=== PATIENT | female | born 1995 | race Caucasian/White ===

== ENCOUNTER 2016-12-13 09:25 | Emergency (ER) | payer BC ==
[2016-12-13 09:39] VITALS: BP 134/65
[2016-12-13] MEDS ORDERED: Sodium Chloride 0.9% 10 ML Syringe FLUSH PRN (10:00)
[2016-12-13] MEDS ORDERED: Sodium Chloride 0.9% 500 ML IV ONE (10:00)
--- NOTE | 2016-12-13 12:21 | EDM.PDOC ---
ED HPI GENERAL MEDICAL PROBLEM - General Chief Complaint: Chest Pain Stated Complaint: CHEST PRESSURE, RAPID HEART RATE Time Seen by Provider: 12/13/16 09:50 Source of Information: Reports: Patient, RN Notes Reviewed - History of Present Illness INITIAL COMMENTS - FREE TEXT/NARRATIVE: 21-year-old female comes in with complaint of chest discomfort, palpitations. Ongoing on intermittently for about the past week to 10 days. Her symptoms have been more bothersome yesterday and today. States that time her heart rate is gone up into the 110-120 range. The even at rest and then even "faster with exertion". The chest get tight and she also is aware of palpitations. Had nonspecific dizziness. She states she feels more fatigued than usual. She has not been coughing. No fever or chills. No abdominal pain nausea or vomiting. she does not take any regular medications. She does not have history of any known medical problems. Chest Pain Score (Numeric/FACES): 6 - Related Data Allergies Allergy/AdvReac Type Severity Reaction Status Date / Time tramadol Allergy Dizziness Verified 12/13/16 09:40 Home Meds: Home Meds . 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 Denies: Fever, Chills HEENT: Denies: Sinus Problem, Throat Pain Respiratory: Reports: Shortness of Breath (mild gone) Cardiovascular: Reports: Chest Pain (anterior chest tightness and achiness), Lightheadedness, Palpitations Endocrine: Reports: Fatigue GI/Abdominal: Denies: Abdominal Pain, Nausea, Vomiting Musculoskeletal: Reports: Other (generalized achiness) Skin: Reports: No Symptoms Neurological: Reports: Dizziness, Weakness (generalized). Denies: Numbness, Tingling, Trouble Speaking ED EXAM, GENERAL - Physical Exam Exam: See Below General Appearance: Alert, Anxious (mild) Eye Exam: Bilateral Eye: PERRL Throat/Mouth: Normal Inspection, Normal Oropharynx Head: Atraumatic. No: Facial Swelling Neck: Supple, Full Range of Motion Respiratory/Chest: No Respiratory Distress, Lungs Clear, Normal Breath Sounds, Chest Non-Tender Cardiovascular: Regular Rate, Rhythm GI/Abdominal: Soft, Non-Tender Back Exam: No: CVA Tenderness (L), CVA Tenderness (R) Extremities: Normal Inspection. No: Pedal Edema, Leg Pain Neurological: Alert, Oriented, No Motor/Sensory Deficits Skin Exam: Warm, Dry, Normal Color Course - Vital Signs Last Recorded V/S: Last Vital Signs Temp 97.3 F 12/13/16 09:33 Pulse 109 H 12/13/16 09:33 Resp 16 12/13/16 09:33 BP 134/65 12/13/16 09:33 Pulse Ox 100 12/13/16 09:33 - Orders/Labs/Meds Orders: Active Orders 24 hr Category Date Time Status EKG 12 Lead [EKG Documentation Completion] [RC] STAT Care 12/13/16 10:00 Active Holter Monitor 48 Hours [RC] .PRN Care 12/13/16 12:25 Active Peripheral IV Care [RC] . DIRECTED Care 12/13/16 10:00 Active Peripheral IV Insertion Adult [OM.PC] Stat Oth 12/13/16 10:00 Ordered Labs: Laboratory Tests 12/13/16 12/13/16 12/13/16 Range/Units 09:52 09:52 09:52 WBC 6.46 (3.98-10.04) K/mm3 RBC 4.54 (3.98-5.22) M/mm3 Hgb 12.9 (11.2-15.7) gm/L Hct 38.3 (34.1-44.9) % MCV 84.4 (79.4-94.8) fl MCH 28.4 (25.6-32.2) pg MCHC 33.7 (32.2-35.5) g/dl RDW Std Deviation 40.2 (36.4-46.3) fL Plt Count 279 (182-369) K/mm3 MPV 10.0 (9.4-12.3) fl Neut % (Auto) 62.2 (34.0-71.1) % Lymph % (Auto) 23.5 (19.3-51.7) % [place] % (Auto) 9.0 (4.7-12.5) % Eos % (Auto) 4.5 (0.7-5.8) Baso % (Auto) 0.6 (0.1-1.2) % Neut # (Auto) 4.02 (1.56-6.13) K/mm3 Lymph # (Auto) 1.52 (1.18-3.74) K/mm3 [place] # (Auto) 0.58 H (0.24-0.36) K/mm3 Eos # (Auto) 0.29 (0.04-0.36) K/mm3 Baso # (Auto) 0.04 (0.01-0.08) K/mm3 ESR (0-20) mm/hr Sodium 140 (136-145) mEq/L Potassium 4.1 (3.5-5.1) mEq/L Chloride 105 (98-107) mEq/L Carbon Dioxide 25 (21-32) mEq/L Anion Gap 14.1 (5-15) BUN 10 (7-18) mg/dL Creatinine 0.7 (0.55-1.02) mg/dL Est Cr Clr Drug Dosing 118.34 mL/min Estimated GFR (MDRD) > 60 (>60) mL/min BUN/Creatinine Ratio 14.3 (14-18) Glucose 95 (74-106) mg/dL Calcium 8.9 (8.5-10.1) mg/dL Total Bilirubin 0.8 (0.2-1.0) mg/dL AST 17 (15-37) U/L ALT 17 (14-59) U/L Alkaline Phosphatase 60 (46-116) U/L Total Protein 7.6 (6.4-8.2) g/dl Albumin 3.8 (3.4-5.0) g/dl Globulin 3.8 gm/dL Albumin/Globulin Ratio 1.0 (1-2) TSH 3rd Generation 1.583 (0.358-3.74) uIU/mL HCG, Qual Negative (NEGATIVE) 12/13/16 Range/Units 09:52 WBC (3.98-10.04) K/mm3 RBC (3.98-5.22) M/mm3 Hgb (11.2-15.7) gm/L Hct (34.1-44.9) % MCV (79.4-94.8) fl MCH (25.6-32.2) pg MCHC (32.2-35.5) g/dl RDW Std Deviation (36.4-46.3) fL Plt Count (182-369) K/mm3 MPV (9.4-12.3) fl Neut % (Auto) (34.0-71.1) % Lymph % (Auto) (19.3-51.7) % [place] % (Auto) (4.7-12.5) % Eos % (Auto) (0.7-5.8) Baso % (Auto) (0.1-1.2) % Neut # (Auto) (1.56-6.13) K/mm3 Lymph # (Auto) (1.18-3.74) K/mm3 [place] # (Auto) (0.24-0.36) K/mm3 Eos # (Auto) (0.04-0.36) K/mm3 Baso # (Auto) (0.01-0.08) K/mm3 ESR 11 (0-20) mm/hr Sodium (136-145) mEq/L Potassium (3.5-5.1) mEq/L Chloride (98-107) mEq/L Carbon Dioxide (21-32) mEq/L Anion Gap (5-15) BUN (7-18) mg/dL Creatinine (0.55-1.02) mg/dL Est Cr Clr Drug Dosing mL/min Estimated GFR (MDRD) (>60) mL/min BUN/Creatinine Ratio (14-18) Glucose (74-106) mg/dL Calcium (8.5-10.1) mg/dL Total Bilirubin (0.2-1.0) mg/dL AST (15-37) U/L ALT (14-59) U/L Alkaline Phosphatase (46-116) U/L Total Protein (6.4-8.2) g/dl Albumin (3.4-5.0) g/dl Globulin gm/dL Albumin/Globulin Ratio (1-2) TSH 3rd Generation (0.358-3.74) uIU/mL HCG, Qual (NEGATIVE) Meds: Medications Discontinued Medications Generic Name Dose Route Start Last Admin Trade Name Freq PRN Reason Stop Dose Admin Sodium Chloride 500 mls @ 999 mls/hr 12/13/16 10:00 12/13/16 10:14 Normal Saline IV 12/13/16 10:30 999 mls/hr .BOLUS ONE Administration Sodium Chloride 10 ml 12/13/16 10:00 12/13/16 10:15 Saline Flush FLUSH 10 ml ASDIRECTED PRN Administration Keep Vein Open - Re-Assessments/Exams Free Text/Narrative Re-Assessment/Exam: 12/13/16 14:52 labs have all come back relatively normal. EKG was normal. Due to severity of symptoms have arranged for her to go home with 48 hour Holter monitor. Discharge instructions as documented Departure - Departure Time of Disposition: 12:10 Disposition: Home, Self-Care 01 Clinical Impression: Rapid palpitations Instructions: Sinus Tachycardia, Palpitations, [id number] Referrals: PCP,None [Primary Care Provider] - Forms: ED Department Discharge Additional Instructions: 48 hour Holter monitor, continue to drink plenty of water to maintain hydration , follow-up at [facility] Tuesday as planned, your white blood count, hemoglobin, chemistries, thyroid function and sedimentation rate were all normal when checked while here at the ED this morning. Return to ED if symptoms worsening in any way. - My Orders Last 24 Hours: My Active Orders 12/13/16 10:00 EKG 12 Lead [EKG Documentation Completion] [RC] STAT Peripheral IV Care [RC] . DIRECTED Peripheral IV Insertion Adult [OM.PC] Stat 12/13/16 12:25 Holter Monitor 48 Hours [RC] .PRN - Assessment/Plan Last 24 Hours: My Active Orders 12/13/16 10:00 EKG 12 Lead [EKG Documentation Completion] [RC] STAT Peripheral IV Care [RC] . DIRECTED Peripheral IV Insertion Adult [OM.PC] Stat 12/13/16 12:25 Holter Monitor 48 Hours [RC] .PRN
== END 2016-12-13 12:40 | disposition home or self-care (01) ==
LOC: JD.ED 09:25
DX: R00.2 Palpitations (principal); Z88.5 Allergy status to narcotic agent
CPT/HCPCS: 36415; 80053; 84443; 84703; 85025; 85652; 93005; 93225; 93226; 96360; 96361; 99285; J7040; J7050

== ENCOUNTER 2016-12-20 19:18 | Emergency (ER) | payer BC ==
[2016-12-20 19:29] VITALS: BP 124/86
--- NOTE | 2016-12-20 20:40 | EDM.PDOC ---
ED HPI GENERAL MEDICAL PROBLEM - General Chief Complaint: Chest Pain Stated Complaint: chest pain Time Seen by Provider: 12/20/16 19:43 Source of Information: Reports: Patient History Limitations: Reports: No Limitations - History of Present Illness INITIAL COMMENTS - FREE TEXT/NARRATIVE: Patient is a 21-year-old female presents ED complaining of fast heart rate, palpitations, intermittent chest pain with shortness of breath. States she's been evaluated by a provider here in the ED this past week for similar complaints. 48 hour Holter monitor was ordered and the patient went to her primary care provider today to obtain results but none were present. Patient states she's continue to have palpitations with fast heart rate. Today from 11: 00 till 1:00 her heart rate was 138 bpm. At that time she was just sitting around watching HER-2 young children. States last week upon discharge from the ED heart rate was in the 160s per her apple watch. When symptoms come on she becomes short of breath has intermittent chest pain and feels very fatigued afterwards. Symptoms come on sporadically with really no known precipitating factor. She denies no recent increase in stress or excessive caffeine use. She does admit to having poor sleep secondary to caring for her kids. Currently with admission to the ED denies any chest pain, shortness of breath, dizziness, nausea/vomiting, abdominal pain, dysuria, swelling to her lower extremities, or history of DVT/PE. She has no additional past medical history. 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 Denies: Fever, Chills HEENT: Reports: No Symptoms Respiratory: Reports: Shortness of Breath (With onset of tachycardia) Cardiovascular: Reports: Chest Pain (With onset of tachycardia), Dyspnea on Exertion, Palpitations. Denies: Lightheadedness, Syncope GI/Abdominal: Denies: Abdominal Pain, Constipation, Diarrhea, Nausea, Vomiting : Denies: Dysuria, Frequency, Urgency, Urinary Retention Musculoskeletal: Reports: No Symptoms Neurological: Reports: Dizziness (With onset of tachycardia). Denies: Headache , Numbness, Tingling ED EXAM, GENERAL - Physical Exam Exam: See Below Exam Limited By: No Limitations General Appearance: Alert, WD/WN, No Apparent Distress Ears: Hearing Grossly Normal Nose: Normal Inspection Throat/Mouth: Normal Voice, No Airway Compromise Neck: Normal Inspection, Supple Respiratory/Chest: No Respiratory Distress, Lungs Clear, Normal Breath Sounds, No Accessory Muscle Use, Chest Non-Tender Cardiovascular: Normal Peripheral Pulses, Regular Rate, Rhythm, No Murmur Peripheral Pulses: 2+: Radial (L) GI/Abdominal: Normal Bowel Sounds, Soft, Non-Tender, No Organomegaly, No Distention Extremities: Normal Inspection, Non-Tender, No Pedal Edema, Normal Capillary Refill Neurological: Alert, Oriented, CN II-XII Intact, Normal Cognition, No Motor/ Sensory Deficits Psychiatric: Normal Affect, Normal Mood Skin Exam: Warm, Dry, Intact, Normal Color Course - Vital Signs Last Recorded V/S: Last Vital Signs Temp 98.3 F 12/20/16 19:27 Pulse 82 12/20/16 19:27 Resp 20 12/20/16 19:27 BP 124/86 12/20/16 19:27 Pulse Ox 100 12/20/16 19:27 - Orders/Labs/Meds Labs: Laboratory Tests 12/20/16 12/20/16 12/20/16 Range/Units 20:05 20:05 20:05 WBC (3.98-10.04) K/mm3 RBC (3.98-5.22) M/mm3 Hgb (11.2-15.7) gm/L Hct (34.1-44.9) % MCV (79.4-94.8) fl MCH (25.6-32.2) pg MCHC (32.2-35.5) g/dl RDW Std Deviation (36.4-46.3) fL Plt Count (182-369) K/mm3 MPV (9.4-12.3) fl Neut % (Auto) (34.0-71.1) % Lymph % (Auto) (19.3-51.7) % [place] % (Auto) (4.7-12.5) % Eos % (Auto) (0.7-5.8) Baso % (Auto) (0.1-1.2) % Neut # (Auto) (1.56-6.13) K/mm3 Lymph # (Auto) (1.18-3.74) K/mm3 [place] # (Auto) (0.24-0.36) K/mm3 Eos # (Auto) (0.04-0.36) K/mm3 Baso # (Auto) (0.01-0.08) K/mm3 Manual Slide Review Sodium (136-145) mEq/L Potassium (3.5-5.1) mEq/L Chloride (98-107) mEq/L Carbon Dioxide (21-32) mEq/L Anion Gap (5-15) BUN (7-18) mg/dL Creatinine (0.55-1.02) mg/dL Est Cr Clr Drug Dosing mL/min Estimated GFR (MDRD) (>60) mL/min BUN/Creatinine Ratio (14-18) Glucose (74-106) mg/dL Calcium (8.5-10.1) mg/dL Magnesium (1.8-2.4) mg/dl Total Bilirubin (0.2-1.0) mg/dL AST (15-37) U/L ALT (14-59) U/L Alkaline Phosphatase (46-116) U/L Total Protein (6.4-8.2) g/dl Albumin (3.4-5.0) g/dl Globulin gm/dL Albumin/Globulin Ratio (1-2) TSH 3rd Generation (0.358-3.74) uIU/mL Urine Color Yellow (Yellow) Urine Appearance Clear (Clear) Urine pH 6.5 (5.0-8.0) Ur Specific [place] > or = 1.030 (1.005-1.030) Urine Protein Negative (Negative) Urine Glucose (UA) Negative (Negative) Urine Ketones Negative (Negative) Urine Occult Blood Negative (Negative) Urine Nitrite Negative (Negative) Urine Bilirubin Negative (Negative) Urine Urobilinogen 0.2 (0.2-1.0) Ur Leukocyte Esterase Negative (Negative) Urine RBC 0-5 (0-5) /hpf Urine WBC 0-5 (0-5) /hpf Ur Epithelial Cells 5-10 H (0-5) /hpf Urine Bacteria Few (FEW) /hpf Urine Mucus Few (FEW) /hpf Urine HCG, Qual Negative (NEGATIVE) Urine Opiates Screen Negative (NEGATIVE) Ur Buprenorphine Scrn Negative (NEGATIVE) Ur Oxycodone Screen Negative (NEGATIVE) Urine Methadone Screen Negative (NEGATIVE) Ur Propoxyphene Screen Negative (NEGATIVE) Ur Barbiturates Screen Negative (NEGATIVE) Ur Tricyclics Screen Negative (NEGATIVE) Ur Phencyclidine Scrn Negative (NEGATIVE) Ur Amphetamine Screen Negative (NEGATIVE) U Methamphetamines Scrn Negative (NEGATIVE) U Benzodiazepines Scrn Negative (NEGATIVE) U Cocaine Metab Screen Negative (NEGATIVE) U Marijuana (THC) Screen Negative (NEGATIVE) 12/20/16 12/20/16 Range/Units 20:15 20:15 WBC 7.13 (3.98-10.04) K/mm3 RBC 4.63 (3.98-5.22) M/mm3 Hgb 13.0 (11.2-15.7) gm/L Hct 39.2 (34.1-44.9) % MCV 84.7 (79.4-94.8) fl MCH 28.1 (25.6-32.2) pg MCHC 33.2 (32.2-35.5) g/dl RDW Std Deviation 40.3 (36.4-46.3) fL Plt Count 332 (182-369) K/mm3 MPV 9.6 (9.4-12.3) fl Neut % (Auto) 53.5 (34.0-71.1) % Lymph % (Auto) 33.2 (19.3-51.7) % [place] % (Auto) 8.3 (4.7-12.5) % Eos % (Auto) 3.5 (0.7-5.8) Baso % (Auto) 1.5 H (0.1-1.2) % Neut # (Auto) 3.81 (1.56-6.13) K/mm3 Lymph # (Auto) 2.37 (1.18-3.74) K/mm3 [place] # (Auto) 0.59 H (0.24-0.36) K/mm3 Eos # (Auto) 0.25 (0.04-0.36) K/mm3 Baso # (Auto) 0.11 H (0.01-0.08) K/mm3 Manual Slide Review Normal smear Sodium 142 (136-145) mEq/L Potassium 3.5 (3.5-5.1) mEq/L Chloride 106 (98-107) mEq/L Carbon Dioxide 28 (21-32) mEq/L Anion Gap 11.5 (5-15) BUN 9 (7-18) mg/dL Creatinine 0.7 (0.55-1.02) mg/dL Est Cr Clr Drug Dosing 122.89 mL/min Estimated GFR (MDRD) > 60 (>60) mL/min BUN/Creatinine Ratio 12.9 L (14-18) Glucose 107 H (74-106) mg/dL Calcium 9.1 (8.5-10.1) mg/dL Magnesium 2.1 (1.8-2.4) mg/dl Total Bilirubin 0.8 (0.2-1.0) mg/dL AST 17 (15-37) U/L ALT 16 (14-59) U/L Alkaline Phosphatase 63 (46-116) U/L Total Protein 7.9 (6.4-8.2) g/dl Albumin 4.0 (3.4-5.0) g/dl Globulin 3.9 gm/dL Albumin/Globulin Ratio 1.0 (1-2) TSH 3rd Generation 1.824 (0.358-3.74) uIU/mL Urine Color (Yellow) Urine Appearance (Clear) Urine pH (5.0-8.0) Ur Specific [place] (1.005-1.030) Urine Protein (Negative) Urine Glucose (UA) (Negative) Urine Ketones (Negative) Urine Occult Blood (Negative) Urine Nitrite (Negative) Urine Bilirubin (Negative) Urine Urobilinogen (0.2-1.0) Ur Leukocyte Esterase (Negative) Urine RBC (0-5) /hpf Urine WBC (0-5) /hpf Ur Epithelial Cells (0-5) /hpf Urine Bacteria (FEW) /hpf Urine Mucus (FEW) /hpf Urine HCG, Qual (NEGATIVE) Urine Opiates Screen (NEGATIVE) Ur Buprenorphine Scrn (NEGATIVE) Ur Oxycodone Screen (NEGATIVE) Urine Methadone Screen (NEGATIVE) Ur Propoxyphene Screen (NEGATIVE) Ur Barbiturates Screen (NEGATIVE) Ur Tricyclics Screen (NEGATIVE) Ur Phencyclidine Scrn (NEGATIVE) Ur Amphetamine Screen (NEGATIVE) U Methamphetamines Scrn (NEGATIVE) U Benzodiazepines Scrn (NEGATIVE) U Cocaine Metab Screen (NEGATIVE) U Marijuana (THC) Screen (NEGATIVE) - Re-Assessments/Exams Free Text/Narrative Re-Assessment/Exam: Labs ordered include: TSH, C14, CBC, Mg, UA, HCG, and urine drug tox. Labs reviewed. Shared results of labs and preliminary Holter monitor results. Patient's blood pressure was 84/systolic. Heart rate in the 70s sinus in nature. She has no palpitations. Do believe patient may have anxiety-like symptoms. She takes care of 2 young children at home by herself. Her travels quite a bit due to work. They have no family support system here in [place]. They're from [facility]. Patient has admitted to be an excessively tired due to taking care of the kids. Initially was going to start the patient on a beta jeremías. The patient does have low blood pressure to which she states is normal for her. Discussed starting a anti anxiety/ depression medication upon discharge from the E.D. Patient has elected to do this. Will start on celexa 10mg POqd. Patient had no additional questions. She was in agreement of plan. Will discharge patient home with instructions as documented. Departure - Departure Time of Disposition: 21:36 Disposition: Home, Self-Care 01 Condition: Good Clinical Impression: Sinus tachycardia, Anxiety and depression, Rapid palpitations Prescriptions: Citalopram [Celexa] 10 mg PO DAILY #30 tablet Instructions: Panic Attacks, [id number], Sinus Tachycardia, Palpitations, [id number] Referrals: Melany Vidales PA-C [Primary Care Provider] - Forms: ED Department Discharge Additional Instructions: As discussed will have you start taking Celexa 10 mg one tab daily. Follow-up with her primary care provider in 2 weeks or sooner if needed to ensure you're not experience any adverse side effects and that if the medication is working. Give plenty of sleep. During plenty fluids. Eat a balanced diet. Take adequate time for you're self. Suggest refraining from any alcohol. Return to ED as needed for any new or worsening symptoms. See below for medication information. Generic Name: citalopram Pronounced: dayan partida alvina Brand Name: Kim What is the most important information I should know about citalopram? You should not use citalopram if you also take pimozide, or if you are being treated with methylene blue injection. Do not use citalopram if you have used an MAO inhibitor in the past 14 days. A dangerous drug interaction could occur. MAO inhibitors include isocarboxazid, linezolid, methylene blue injection, phenelzine, rasagiline, selegiline, tranylcypromine, and others. What is citalopram? Citalopram is an antidepressant in a group of drugs called selective serotonin reuptake inhibitors (SSRIs). Citalopram is used to treat depression. Citalopram may also be used for purposes not listed in this medication guide. What should I discuss with my healthcare provider before taking citalopram? You should not use citalopram if you are allergic to it, if you also take pimozide, or if you are being treated with methylene blue injection. Do not use citalopram if you have taken an MAO inhibitor in the past 14 days. A dangerous drug interaction could occur. MAO inhibitors include isocarboxazid, linezolid, phenelzine, rasagiline, selegiline, and tranylcypromine. To make sure citalopram is safe for you, tell your doctor if you have: a bleeding or blood clotting disorder; liver or kidney disease; seizures or epilepsy; heart disease, heart failure, a heart rhythm disorder, slow heartbeats, or recent history of heart attack; personal or family history of Long QT syndrome; an electrolyte imbalance (such as low levels of potassium or magnesium in your blood); bipolar disorder (manic depression); or a history of drug abuse or suicidal thoughts. Some young people have thoughts about suicide when first taking an antidepressant. Your doctor will need to check your progress at regular visits while you are using citalopram. Your family or other caregivers should also be alert to changes in your mood or symptoms. FDA category C. Taking an SSRI antidepressant during may cause serious lung problems in the baby. However, you may have a relapse of depression if you stop taking your antidepressant. Tell your doctor right away if you become while taking citalopram. Do not start or stop taking this medicine during without your doctor's advice. Citalopram can pass into breast milk and may harm a nursing baby. You should not breast-feed while you are using citalopram. Do not give this medication to anyone under 18 years old without medical advice. How should I take citalopram? Follow all directions on your prescription label. Your doctor may occasionally change your dose to make sure you get the best results. Do not take this medicine in larger or smaller amounts or for longer than recommended. Measure liquid medicine with a special dose-measuring spoon or medicine cup. If you do not have a dose-measuring device, ask your pharmacist for one. It may take 4 weeks or longer before your symptoms improve. Keep using the medication as directed and tell your doctor if your symptoms do not improve after 4 weeks of treatment. Do not stop using citalopram suddenly, or you could have unpleasant withdrawal symptoms. Ask your doctor how to safely stop using citalopram. Store at room temperature away from moisture and heat. What happens if I miss a dose? Take the missed dose as soon as you remember. Skip the missed dose if it is almost time for your next scheduled dose. Do not take extra medicine to make up the missed dose. What happens if I overdose? Seek emergency medical attention or call the Poison Help line at . What should I avoid while taking citalopram? Ask your doctor before taking a nonsteroidal anti-inflammatory drug (NSAID) for pain, arthritis, fever, or swelling. This includes aspirin, celecoxib, diclofenac, indomethacin, meloxicam, and others, and others. Using an NSAID with citalopram may cause you to bruise or bleed easily. Drinking alcohol can increase certain side effects of citalopram. Citalopram may impair your thinking or reactions. Be careful if you drive or do anything that requires you to be alert. What are the possible side effects of citalopram? Get emergency medical help if you have any of these signs of an allergic reaction: skin rash or hives; difficulty breathing; swelling of your face, lips , tongue, or throat. Report any new or worsening symptoms to your doctor, such as: mood or behavior changes, anxiety, panic attacks, trouble sleeping, or if you feel impulsive, irritable, agitated, hostile, aggressive, restless, hyperactive (mentally or physically), more depressed, or have thoughts about suicide or hurting yourself. Call your doctor at once if you have: very stiff (rigid) muscles, high fever, sweating, confusion, fast or uneven heartbeats, tremors, feeling like you might pass out; agitation, hallucinations, overactive reflexes, nausea, vomiting, diarrhea, loss of coordination, feeling like you might pass out; headache with chest pain and severe dizziness, fainting, fast or pounding heartbeats; or headache, slurred speech, severe weakness, muscle cramps, feeling unsteady, seizure (convulsions), shallow breathing (breathing may stop). Common side effects may include: drowsiness, tired feeling; sleep problems (insomnia); mild nausea, diarrhea, upset stomach, dry mouth; cold symptoms such as stuffy nose, sneezing, sore throat, cough; increased sweating or urination, weight changes; or decreased sex drive, impotence, or difficulty having an orgasm. This is not a complete list of side effects and others may occur. Call your doctor for medical advice about side effects. You may report side effects to FDA at 6-578-QSN-3030. What other drugs will affect citalopram? Taking citalopram with other drugs that make you sleepy or slow your breathing can increase these effects. Ask your doctor before taking citalopram with a sleeping pill, narcotic pain medicine, muscle relaxer, or medicine for anxiety or seizures. Many drugs can interact with citalopram. Not all possible interactions are listed here. Tell your doctor about all your medications and any you start or stop using during treatment with citalopram, especially: cimetidine; lithium; Cierra's wort; tramadol; tryptophan (sometimes called L-tryptophan); heart rhythm medication--amiodarone, dofetilide, disopyramide, dronedarone, flecainide, ibutilide, procainamide, propafenone, quinidine, sotalol; medicines to treat psychiatric disorders--chlorpromazine, fluphenazine, haloperidol, iloperidone, paliperidone, perphenazine, pimozide, prochlorperazine , quetiapine, risperidone, thioridazine, trifluoperazine, ziprasidone; migraine headache medicine--sumatriptan, zolmitriptan; or other antidepressants--amoxapine, amitriptyline, clomipramine, desipramine, doxepin, fluoxetine, imipramine, maprotiline, nortriptyline, protriptyline, trimipramine. This list is not complete and many other drugs can interact with citalopram. This includes prescription and [id number] medicines, vitamins, and herbal products. Give a list of all your medicines to any healthcare provider who treats you. Where can I get more information? Your pharmacist can provide more information about citalopram. Remember, keep this and all other medicines out of the reach of children, never share your medicines with others, and use this medication only for the indication prescribed.
== END 2016-12-20 21:55 | disposition home or self-care (01) ==
LOC: JD.ED 19:18
DX: R00.0 Tachycardia, unspecified (principal); F41.9 Anxiety disorder, unspecified; F32.9 Major depressive disorder, single episode, unspecified; Z88.5 Allergy status to narcotic agent; Z79.899 Other long term (current) drug therapy
CPT/HCPCS: 36415; 80053; 80306; 81001; 81025; 83735; 84443; 85025; 99284; 99285

== ENCOUNTER 2017-03-14 20:33 | Emergency (ER) | payer BC ==
[2017-03-14 20:46] VITALS: BP 120/73
[2017-03-14] MEDS ORDERED: Lactated Ringers 1,000 ML IV ONE (21:33)
[2017-03-14] MEDS ORDERED: Metoclopramide 10 MG/2 ML SDV IVPUSH ONE (21:33)
[2017-03-14] MEDS ORDERED: Sodium Chloride 0.9% 10 ML Syringe FLUSH PRN (21:33)
--- NOTE | 2017-03-14 21:42 | EDM.PDOC ---
ED HPI GENERAL MEDICAL PROBLEM - General Chief Complaint: Gastrointestinal Problem Stated Complaint: NAUSEA 10WKS PG Time Seen by Provider: 03/14/17 21:25 Source of Information: Reports: Patient History Limitations: Reports: No Limitations - History of Present Illness INITIAL COMMENTS - FREE TEXT/NARRATIVE: 21-year-old female presents for evaluation and treatment of nausea. Patient is approximately 10 weeks . She is a . [employer] providers Dr. Webb. Patient reports this has been very difficult for her. She has felt nauseous nearly the entire . She states that she has vomited about 5 or 6 times since the beginning of the . She vomited twice yesterday and once so far today but she feels incredibly nauseous and has some pain in her upper abdomen. She states she still has a good appetite and eating actually seems to improve the nausea. She reports associated symptoms of chills and body aches. She denies any fevers, diarrhea vaginal bleeding, cramping or any urinary symptoms. States that she has Zofran and Phenergan at home prescribed by her [employer] but these have not helped with nausea. She has seen her [employer] provider on several occasions for this . She's had 2 ultrasounds which thus far have been unremarkable for any abnormalities. She is scheduled to see her [employer] provider again in about 3-4 weeks. She did not receive an influenza vaccine this season. Reports her kids have been ill with flu symptoms. Right Shoulder Pain Score (Numeric/FACES): 7 - Related Data Allergies Allergy/AdvReac Type Severity Reaction Status Date / Time tramadol Allergy Dizziness Verified 12/13/16 09:40 Past Medical History - Past Health History Medical/Surgical History: Denies Medical/Surgical History Cardiovascular History: Reports: Other (See Below) Other Cardiovascular History: fast heart rate [employer] History: Reports: - Past Surgical History Musculoskeletal Surgical History: Reports: Other (See Below) Other Musculoskeletal Surgeries/Procedures:: surgery on elbows Social & Family History - Tobacco Use Smoking Status *Q: Never Smoker Second Hand Smoke Exposure: No - Caffeine Use Caffeine Use: Reports: Soda - Recreational Drug Use Recreational Drug Use: No ED ROS GENERAL - Review of Systems Review Of Systems: See Below Constitutional: Reports: Chills, Other (body aches). Denies: Fever, Decreased Appetite Respiratory: Denies: Cough GI/Abdominal: Reports: Abdominal Pain (upper abdomen), Nausea, Vomiting. Denies : Diarrhea : Reports: Other (no vaginal bleeding). Denies: Dysuria, Hematuria ED EXAM - Physical Exam Exam: See Below Exam Limited By: No Limitations General Appearance: Alert, WD/WN, Moderate Distress Ears: Normal External Exam Nose: Normal Inspection Throat/Mouth: Normal Inspection, Normal Voice, No Airway Compromise Neck: Normal Inspection Respiratory/Chest: No Respiratory Distress, Lungs Clear, Normal Breath Sounds Cardiovascular: Normal Peripheral Pulses, Regular Rate, Rhythm, No Murmur GI/Abdominal Exam: Normal Bowel Sounds, Soft, Non-Tender Heart Tones per Min: 120 Neurological: Alert, Oriented Psychiatric: Anxious Skin Exam: Warm, Dry, Normal Color Course - Vital Signs Last Recorded V/S: Last Vital Signs Temp 36.7 C 03/14/17 20:42 Pulse 76 03/14/17 20:42 Resp 18 03/14/17 20:42 BP 120/73 03/14/17 20:42 Pulse Ox 98 03/14/17 20:42 - Orders/Labs/Meds Orders: Active Orders 24 hr Category Date Time Status Heart Tones [RC] ASDIRECTED Care 03/14/17 21:33 Active Peripheral IV Care [RC] . DIRECTED Care 03/14/17 21:33 Active Peripheral IV Insertion Adult [OM.PC] Routine Oth 03/14/17 21:32 Ordered Labs: Laboratory Tests 03/14/17 03/14/17 03/14/17 Range/Units 21:00 21:00 22:20 WBC (3.98-10.04) K/mm3 RBC (3.98-5.22) M/mm3 Hgb (11.2-15.7) gm/L Hct (34.1-44.9) % MCV (79.4-94.8) fl MCH (25.6-32.2) pg MCHC (32.2-35.5) g/dl RDW Std Deviation (36.4-46.3) fL Plt Count (182-369) K/mm3 MPV (9.4-12.3) fl Neutrophils % (Manual) (40-60) % Band Neutrophils % (0-10) % Lymphocytes % (Manual) (20-40) % Atypical Lymphs % % Monocytes % (Manual) (2-10) % Eosinophils % (Manual) (0.7-5.8) % Basophils % (Manual) (0.1-1.2) Platelet Estimate Plt Morphology Comment Poikilocytosis [place] Cells Acanthocytes (Spur) Sodium 136 (136-145) mEq/L Potassium 3.2 L (3.5-5.1) mEq/L Chloride 104 (98-107) mEq/L Carbon Dioxide 23 (21-32) mEq/L Anion Gap 12.2 (5-15) BUN 5 L (7-18) mg/dL Creatinine 0.5 L (0.55-1.02) mg/dL Est Cr Clr Drug Dosing 172.05 mL/min Estimated GFR (MDRD) > 60 (>60) mL/min BUN/Creatinine Ratio 10.0 L (14-18) Glucose 99 (74-106) mg/dL Calcium 8.7 (8.5-10.1) mg/dL Total Bilirubin 1.0 (0.2-1.0) mg/dL AST 14 L (15-37) U/L ALT 12 L (14-59) U/L Alkaline Phosphatase 47 (46-116) U/L Total Protein 7.0 (6.4-8.2) g/dl Albumin 3.4 (3.4-5.0) g/dl Globulin 3.6 gm/dL Albumin/Globulin Ratio 0.9 L (1-2) Lipase (73-393) U/L Urine Color Yellow (Yellow) Urine Appearance Clear (Clear) Urine pH 6.0 (5.0-8.0) Ur Specific [place] > or = 1.030 (1.005-1.030) Urine Protein Negative (Negative) Urine Glucose (UA) Negative (Negative) Urine Ketones Negative (Negative) Urine Occult Blood Negative (Negative) Urine Nitrite Negative (Negative) Urine Bilirubin Negative (Negative) Urine Urobilinogen 0.2 (0.2-1.0) Ur Leukocyte Esterase Negative (Negative) Urine RBC 0-5 (0-5) /hpf Urine WBC 0-5 (0-5) /hpf Ur Epithelial Cells 0-5 (0-5) /hpf Urine Bacteria Few (FEW) /hpf Urine Mucus Moderate H (FEW) /hpf Urine HCG, Qual Positive (NEGATIVE) 03/14/17 03/14/17 Range/Units 22:20 22:20 WBC 6.55 (3.98-10.04) K/mm3 RBC 4.24 (3.98-5.22) M/mm3 Hgb 11.9 (11.2-15.7) gm/L Hct 34.7 (34.1-44.9) % MCV 81.8 (79.4-94.8) fl MCH 28.1 (25.6-32.2) pg MCHC 34.3 (32.2-35.5) g/dl RDW Std Deviation 37.0 (36.4-46.3) fL Plt Count 248 (182-369) K/mm3 MPV 9.7 (9.4-12.3) fl Neutrophils % (Manual) 59 (40-60) % Band Neutrophils % 0 (0-10) % Lymphocytes % (Manual) 29 (20-40) % Atypical Lymphs % 0 % Monocytes % (Manual) 7 (2-10) % Eosinophils % (Manual) 5 (0.7-5.8) % Basophils % (Manual) 0 L (0.1-1.2) Platelet Estimate Adequate Plt Morphology Comment Normal Poikilocytosis 3+ marked [place] Cells 1+ slight Acanthocytes (Spur) 1+ slight Sodium (136-145) mEq/L Potassium (3.5-5.1) mEq/L Chloride (98-107) mEq/L Carbon Dioxide (21-32) mEq/L Anion Gap (5-15) BUN (7-18) mg/dL Creatinine (0.55-1.02) mg/dL Est Cr Clr Drug Dosing mL/min Estimated GFR (MDRD) (>60) mL/min BUN/Creatinine Ratio (14-18) Glucose (74-106) mg/dL Calcium (8.5-10.1) mg/dL Total Bilirubin (0.2-1.0) mg/dL AST (15-37) U/L ALT (14-59) U/L Alkaline Phosphatase (46-116) U/L Total Protein (6.4-8.2) g/dl Albumin (3.4-5.0) g/dl Globulin gm/dL Albumin/Globulin Ratio (1-2) Lipase 168 (73-393) U/L Urine Color (Yellow) Urine Appearance (Clear) Urine pH (5.0-8.0) Ur Specific [place] (1.005-1.030) Urine Protein (Negative) Urine Glucose (UA) (Negative) Urine Ketones (Negative) Urine Occult Blood (Negative) Urine Nitrite (Negative) Urine Bilirubin (Negative) Urine Urobilinogen (0.2-1.0) Ur Leukocyte Esterase (Negative) Urine RBC (0-5) /hpf Urine WBC (0-5) /hpf Ur Epithelial Cells (0-5) /hpf Urine Bacteria (FEW) /hpf Urine Mucus (FEW) /hpf Urine HCG, Qual (NEGATIVE) Meds: Medications Discontinued Medications Generic Name Dose Route Start Last Admin Trade Name Freq PRN Reason Stop Dose Admin Diphenhydramine HCl 25 mg 03/14/17 21:47 03/14/17 21:50 Benadryl IVPUSH 03/14/17 21:48 25 mg ONETIME ONE Administration Diphenhydramine HCl Confirm 03/14/17 21:53 03/14/17 21:50 Benadryl Administered 03/14/17 21:54 Not Given Dose 50 mg .ROUTE .STK-MED ONE Lactated Ringer's 1,000 mls @ 999 mls/hr 03/14/17 21:33 03/14/17 21:39 Ringers, Lactated IV 03/14/17 22:33 999 mls/hr .BOLUS ONE Administration Metoclopramide HCl 10 mg 03/14/17 21:33 03/14/17 21:38 Reglan IVPUSH 03/14/17 21:34 10 mg ONETIME ONE Administration Potassium Chloride 20 meq 03/14/17 23:07 03/14/17 23:27 Klor-Con M20 PO 03/14/17 23:08 20 meq ONETIME ONE Administration Sodium Chloride 10 ml 03/14/17 21:33 03/14/17 21:38 Saline Flush FLUSH 10 ml ASDIRECTED PRN Administration Keep Vein Open - Re-Assessments/Exams Free Text/Narrative Re-Assessment/Exam: 03/14/17 23:23 I reviewed the lab results with the patient. Her influenza returned negative. She is feeling greatly improved after 1 L LR, 10 of Reglan and 25 of Benadryl. Initially, she did have a reaction to the Reglan and felt warm, anxious and panicky. This resolved nearly immediately after receiving Benadryl. At this point she feels comfortable going home. I will try her on a doxylamine - pyridoxine compound from [facility] and some topical phenergran. Discharge instructions as documented. Departure - Departure Time of Disposition: 23:24 Disposition: Home, Self-Care 01 Condition: Good Clinical Impression: Nausea Qualifiers: Weeks of gestation: 10 weeks Qualified Code(s): Z3A.10 - 10 weeks gestation of - Discharge Information Instructions: Nausea, Adult Referrals: Erin Cortez MD [Primary Care Provider] - Forms: ED Department Discharge Additional Instructions: Rx for topical phenergran #20 Rx for doxylamine 10/pyridoxine 50/jon root 100 #30 written Have your prescriptions filled at [facility] where they will compound these for you. Take the doxylamine/pyridoxine 1 cap by mouth at hour sleep, may increase to 3 times a day as needed. Use the topical Phenergan half of a ml every 4-6 hours as needed for nausea. Follow up with your [employer] this week or early next week. Make sure to get plenty of fluids. Try to drink approximately half your body weight and ounces of fluid every day. your potassium was slightly low at 3.2 today. Recommend foods high in potassium such as bananas, nuts, avocados, apricots, potatoes. Please return to the ER if your symptoms change or worsen. - My Orders Last 24 Hours: My Active Orders 03/14/17 21:32 Peripheral IV Insertion Adult [OM.PC] Routine 03/14/17 21:33 Heart Tones [RC] ASDIRECTED Peripheral IV Care [RC] . DIRECTED - Assessment/Plan Last 24 Hours: My Active Orders 03/14/17 21:32 Peripheral IV Insertion Adult [OM.PC] Routine 03/14/17 21:33 Heart Tones [RC] ASDIRECTED Peripheral IV Care [RC] . DIRECTED
[2017-03-14] MEDS ORDERED: diphenhydrAMINE 50 MG/ML SDV IVPUSH ONE (21:47)
[2017-03-14] MEDS ORDERED: diphenhydrAMINE 50 MG/ML SDV ONE (21:53)
[2017-03-14] MEDS ORDERED: Potassium Chloride 20 MEQ Tab.ER PO ONE (23:07)
== END 2017-03-15 00:41 | disposition home or self-care (01) ==
LOC: JD.ED 20:33
DX: O99.89 Other specified diseases and conditions complicating pregnancy, childbirth and the puerperium (principal); R11.0 Nausea; Z88.5 Allergy status to narcotic agent; Z3A.10 10 weeks gestation of pregnancy
CPT/HCPCS: 36415; 80053; 81001; 81025; 83690; 85025; 87804; 96361; 96374; 96375; 99284; A9270; J1200; J2765; J7050; J7120